=== PATIENT | female | born 1975 | race Two or more races ===

== ENCOUNTER → 2025-06-04 | Outpatient (CLI) | payer BC, MEDICAID, SELFPAY ==
--- NOTE | 2025-06-04 10:24 | XR_ITS ---
Examination: Knee, left , 3 views Technique: Knee AP, lateral, oblique 3 views Date and time of exam: June 04, 2025 1030 hours INDICATIONS: History tibial plateau fracture 2 months ago FINDINGS: Nondisplaced subacute tibial plateau fracture with significant healing and satisfactory alignment IMPRESSION: Nondisplaced subacute tibial plateau fracture with significant healing and satisfactory alignment
== END | disposition home or self-care (01) ==
PROVIDERS: Referring Provider Orthopaedic Surgery; Visit Provider Orthopaedic Surgery
DX: S82.142D Displaced bicondylar fracture of left tibia, subsequent encounter for closed fracture with routine healing (principal); X58.XXXD Exposure to other specified factors, subsequent encounter
CPT/HCPCS: 73562